=== PATIENT | female | born 1965 | race Two or more races ===

== ENCOUNTER 2024-01-11 07:53 | Emergency (ER) | payer BC ==
[~2024-01-11] VITALS: Ht 162.6 cm; Wt 70.3 kg
[2024-01-11 08:17] VITALS: BP 103/76; TEMP 97.8; O2SAT 99
[2024-01-11] MEDS ORDERED: NEOM10DR11 RIGHT EAR (08:34)
== END 2024-01-11 08:52 | disposition home or self-care (01) ==
LOC: ER 08:04
DX: H60.501 Unspecified acute noninfective otitis externa, right ear (principal); R43.9 Unspecified disturbances of smell and taste; R68.83 Chills (without fever); F17.200 Nicotine dependence, unspecified, uncomplicated; Z88.5 Allergy status to narcotic agent

== ENCOUNTER 2024-04-14 22:21 | Emergency (ER) | payer BC ==
[~2024-04-14] VITALS: Ht 165.1 cm; Wt 64.9 kg
[2024-04-14 22:21] VITALS: TEMP 98.3
[~2024-04-14 22:21] MED LIST: NEOM10DR11 RIGHT EAR
[2024-04-15] MEDS ORDERED: KETOROLAC TROMETHAMINE INJ 30 MG/ML VIAL ONE (01:01)
[2024-04-15] MEDS: KETOROLAC TROMETHAMINE INJ 30 MG/ML VIAL IV ONE (01:08)
[2024-04-15] MEDS: IV NS 0.9% 1,000 ML IV ONE (01:08)
[2024-04-15 01:16] LABS: BASOPHILS # (AUTO) 0.1 K/uL (0.0-0.2); BASOPHILS % (AUTO) 0.5 % (0.0-2.0); EOSINOPHILS # (AUTO) 0.2 K/uL (0.0-0.7); EOSINOPHILS % (AUTO) 2.3 % (0.0-6.0); HEMATOCRIT 35 % (33-45); HEMOGLOBIN 11.8 g/dL (11.5-14.8); LYMPHOCYTES # (AUTO) 2.7 K/uL (0.8-4.8); LYMPHOCYTES % (AUTO) 25.5 % (20.0-44.0); MEAN CORPUSCULAR HEMOGLOBIN 31 PG (26.0-33.0); MEAN CORPUSCULAR HGB CONC 34 g/dl (31.0-36.0); MEAN CORPUSCULAR VOLUME 91 fL (82-100); MONOCYTES # (AUTO) 0.8 K/uL (0.1-1.30); MONOCYTES % (AUTO) 7.8 % (2.0-12.0); NEUTROPHILS # (AUTO) 6.8 K/uL (1.8-8.9); NEUTROPHILS % (AUTO) 63.9 % (43.0-81.0); PLATELET COUNT (AUTO) 253 K/uL (150-450); RED BLOOD CELL COUNT(AUTO) 3.87 MIL/uL (4.0-5.2); RED CELL DISTRIBUTION WIDTH 12.7 % (11.5-15.0); WHITE BLOOD COUNT (AUTO) 10.6 K/uL (4.3-11.0)
[2024-04-15 01:27] LABS: CALCIUM, SERUM 9.5 mg/dL (8.5-10.1); CREATININE 0.7 mg/dL (0.6-1.3)
[2024-04-15 01:34] LABS: ALBUMIN 3.4 g/dL (3.4-5.0); BILIRUBIN,TOTAL 0.2 mg/dL (0.2-1.0); TOTAL PROTEIN, SERUM 7.3 g/dL (6.4-8.2)
[2024-04-15 01:34] LABS: APPEARANCE,URINE CLEAR (CLEAR); BILIRUBIN,URINE NEGATIVE (NEGATIVE); BLOOD, URINE NEGATIVE Ery/uL (NEGATIVE); COLOR,URINE YELLOW (YELLOW); KETONES,URINE NEGATIVE (NEGATIVE); LEUKOCYTE ESTERASE ,URINE NEGATIVE (NEGATIVE); NITRITE, URINE NEGATIVE (NEGATIVE); PH,URINE 7.5 (5.0-8.0); PROTEIN,URINE NEGATIVE (NEGATIVE); UGLUCOSE NEGATIVE (NEGATIVE); UROBILINOGEN,URINE 0.2 EU/dL (0.2)
[2024-04-15] MEDS ORDERED: LEVOFLOXACIN 500 MG /D5W 100ML 100 ML IV ONE (02:19)
[2024-04-15] MEDS ORDERED: METR500T PO (02:24)
[2024-04-15] MEDS ORDERED: LEVO500T90 PO (02:24)
[2024-04-15] MEDS ORDERED: ONDA4TAB5 PO (02:24)
[2024-04-15] MEDS: LEVOFLOXACIN 500 MG /D5W 100ML 500 MG/100 ML PIGGYBACK IV ONE (02:27)
[2024-04-15] MEDS ORDERED: ONDANSETRON HCL/PF 4 MG/2 ML VIAL ONE (02:28)
[2024-04-15] MEDS ORDERED: MORPHINE SULFATE INJ 2 MG/ML DISP.SYRIN ONE (02:28)
[2024-04-15] MEDS: MORPHINE SULFATE INJ 2 MG/ML DISP.SYRIN IV ONE (02:35)
[2024-04-15] MEDS: ONDANSETRON HCL/PF - ER 4 MG/2 ML VIAL IV ONE (02:35)
[2024-04-15 03:29] VITALS: BP 115/86; O2SAT 98
== END 2024-04-15 03:30 | disposition home or self-care (01) ==
LOC: ER 22:23
DX: K57.92 Diverticulitis of intestine, part unspecified, without perforation or abscess without bleeding (principal); F17.200 Nicotine dependence, unspecified, uncomplicated; Z88.5 Allergy status to narcotic agent; Z79.899 Other long term (current) drug therapy
CPT/HCPCS: 99285; 74177; 96365; 96375; 96361; 96366; 85025; 87040; 83690; 81003; 36415; 80053; J1885; J2405 ×2; J7030; J7050; J1956; A4223; J2270; Q9967